=== PATIENT | male | born 1990 | race Two or more races ===

== ENCOUNTER 2016-07-30 10:00 | Emergency (ER) | payer MEDICAID, OTHER ==
[2016-07-30] MEDS ORDERED: Ibuprofen 600 MG Tab PO ONE (10:19)
[2016-07-30] MEDS ORDERED: Acetaminophen/HYDROcodone 325-5 MG Tab PO ONE ×2 (11:00→18:42)
--- NOTE | 2016-07-30 11:06 | EDM.PDOC ---
ED HPI Trauma - General Chief Complaint: Lower Extremity Injury/Pain Stated Complaint: FOOT ANKLE PAIN Time Seen by Provider: 07/30/16 10:10 Source: Reports: Patient, Family History Limitations: Reports: No limitations - History of Present Illness INITIAL COMMENTS - FREE TEXT/NARRATIVE: 26 years old w norma came to the ed 12 hours after her jumped off the second floor after he locked him self in the house. Pt complained of medial ankle pain at his left foot. Pt denied other acute medical issues at this time. Symptom Onset Date: 07/29/16 Symptom Onset Time: 22:00 Occurred When: yesterday Occurred Where: home Method of Injury: fall Severity: mild Pain/Injury Location: Reports: lower extremity, left Consciousness: Reports: no loss of consciousness Associated Symptoms: Reports: denies other symptoms Allergies/ADRs: Allergies No Known Allergies Allergy (Verified 07/30/16 10:13) Home Medications: Ambulatory Orders Hydrocodone/Acetaminophen [Vicodin 5-300 mg Tablet] 1 each PO Q4HR PRN #20 tablet 07/30/16 Social & Family History - Family History Family Medical History: Noncontributory - Tobacco Use Smoking Status *Q: Never Smoker - Caffeine Use Caffeine Use: Reports: Soda - Recreational Drug Use Recreational Drug Use: No Review of Systems - Review of Systems Review Of Systems: See Below Constitutional: Reports: no symptoms Eyes: Reports: no symptoms Ears: Reports: no symptoms Nose: Reports: no symptoms Mouth/Throat: Reports: no symptoms Respiratory: Reports: No Symptoms Cardiovascular: Reports: no symptoms GI/Abdominal: Reports: No symptoms Genitourinary: Reports: no symptoms Musculoskeletal: Reports: no symptoms Skin: Reports: no symptoms Neurological: Reports: No Symptoms Psychiatric: Reports: no symptoms Trauma Exam - Physical Exam Exam: See Below Exam Limited By: No limitations General Appearance: Reports: alert, WD/WN, mild distress Head: Reports: atraumatic, normocephalic Eyes: bilateral eye: normal inspection Ears: Reports: normal external exam Nose: Reports: normal inspection, normal mucousa Throat/Mouth: Reports: Normal inspection, Normal lips, Normal teeth, Normal gums , Normal oropharynx, Normal voice Neck: Reports: non-tender, full range of motion, normal alignment, normal inspection Respiratory Exam: Reports: no respiratory distress, lungs clear, normal breath sounds Cardiovascular: Reports: normal peripheral pulses, regular rate, rhythm, no edema, no JVD GI/Abdominal: Reports: normal bowel sounds, soft, non tender (Male) Exam: Deferred Rectal (Males) Exam: Deferred Back: Reports: full range of motion, normal inspection, non-tender Extremities: Denies: bony-point tenderness (med. 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 Pt complained of medial ankle pain at his left foot. Pt denied other acute medical issues at this time. PE: Bone tenderness medial malleolus left ankle Imaging: mild displaced medial malleolus fracture left ankle Tx: Walking boot/crutches, Motrin, Vicdine Reexam: Improved, pt was able to ambulate. Plan: D/C with instructions. Last Recorded V/S: Last Vital Signs Temp 36.8 C 07/30/16 10:10 Pulse 93 07/30/16 11:10 Resp 17 07/30/16 11:10 BP 128/65 07/30/16 11:10 Pulse Ox 99 07/30/16 11:10 - Orders/Labs/Meds Orders: Active Orders 24 hr Category Date Time Status Ankle Min 3V Lt [CR] Stat Exams 07/30/16 10:14 Taken Meds: Medications Discontinued Medications Generic Name Dose Route Start Last Admin Trade Name Freq PRN Reason Stop Dose Admin Hydrocodone Bitart/Acetaminophen 1 tab 07/30/16 11:00 07/30/16 11:04 Sterling 325-5 Mg PO 07/30/16 11:01 1 tab ONETIME ONE Administration Ibuprofen 600 mg 07/30/16 10:19 07/30/16 10:34 Motrin PO 07/30/16 10:20 600 mg ONETIME ONE Administration Departure - Departure Time of Disposition: 11:01 Disposition: Home, Self-Care 01 Condition: good Clinical Impression: Fractured medial malleolus Qualifiers: Encounter type: initial encounter Fracture type: closed Fracture alignment: displaced Laterality: left Qualified Code(s): S82.52XA - Displaced fracture of medial malleolus of left tibia, initial encounter for closed fracture Prescriptions: Hydrocodone/Acetaminophen [Vicodin 5-300 mg Tablet] 1 each PO Q4HR PRN #20 tablet PRN Reason: severe pain Instructions: Ankle Fracture Referrals: PCP,None [Primary Care Provider] - Forms: ED Department Discharge Additional Instructions: Rest, Ice and elevation, please follow up with your orthopedic surgeon as soon as possible, use crutches/walking boot, please come back to the ed if your symptoms get worse acutely.Motrin/Vicodin as recommended. - My Orders Last 24 Hours: My Active Orders 07/30/16 10:14 Ankle Min 3V Lt [CR] Stat - Assessment/Plan Last 24 Hours: My Active Orders 07/30/16 10:14 Ankle Min 3V Lt [CR] Stat
[2016-07-30 11:17] VITALS: BP 128/65
--- NOTE | 2016-08-01 10:52 | CR ---
INDICATION: Left foot injury. Jumped off a ledge, pain left ankle. LEFT ANKLE: Three views of the left ankle revealed soft tissue swelling laterally. However, there is a transverse fracture through the medial malleolus with approximately 1 mm offset of the fracture fragments - adequate position and alignment suggested. The ankle mortise was otherwise intact in appearance. IMPRESSION: Medial malleolar fracture with adequate position and alignment. MTDD
== END 2016-07-30 11:13 | disposition home or self-care (01) ==
LOC: FB.ED 10:00
DX: S82.52XA Displaced fracture of medial malleolus of left tibia, initial encounter for closed fracture (principal); W13.3XXA Fall through floor, initial encounter; Y92.009 Unspecified place in unspecified non-institutional (private) residence as the place of occurrence of the external cause
CPT/HCPCS: 73610; 99283; A9270

== ENCOUNTER 2016-12-15 17:26 | Emergency (ER) | payer MEDICAID, OTHER ==
[2016-12-15 17:39] VITALS: BP 120/74
[2016-12-15] MEDS ORDERED: Ondansetron 8 MG Tab.DIS PO ONE (17:59)
[2016-12-15] MEDS ORDERED: Alum Hydroxide/Mag Hydroxide 15 ML, Lidocaine 2% 15 ML PO ONE ×2 (18:01)
--- NOTE | 2016-12-15 18:13 | EDM.PDOC ---
ED HPI GENERAL MEDICAL PROBLEM - General Chief Complaint: Gastrointestinal Problem Stated Complaint: STOMACH ACHE, VOMITTING Time Seen by Provider: 12/15/16 17:26 Source of Information: Reports: Patient, Family History Limitations: Reports: Language Barrier - History of Present Illness INITIAL COMMENTS - FREE TEXT/NARRATIVE: 26 years old male came to the ed with his S/O due sudden onset of epigastric pain since dinner last night. nobody else got sick, same food. Pt denies etoh or drug use. No dizziness, lightheadedness. He is not able to keep any food/fluids down since last night. No trauma. Denies any other acute medical issues at this time. Onset: Unknown/Unsure Onset Date: 12/14/16 Onset Time: 19:00 Duration: Hour(s):, Getting Worse Location: Reports: Abdomen (epigastric) Quality: Reports: Burning, Dull, Pressure Severity: Moderate Improves with: Reports: Rest Worsens with: Reports: Eating Context: Reports: Other (spicy food) Associated Symptoms: Reports: Malaise mid epigastric Pain Score (Numeric/FACES): 5 - Related Data Allergies Allergy/AdvReac Type Severity Reaction Status Date / Time No Known Allergies Allergy Verified 12/15/16 17:33 Home Meds: Home Meds Hydrocodone/Acetaminophen [Vicodin 5-300 mg Tablet] 1 each PO Q4HR PRN #20 tablet 07/30/16 [Rx] Esomeprazole [NexIUM] 20 mg PO DAILY 12/15/16 [History] Famotidine [Pepcid] 20 mg PO BID #20 tablet 12/15/16 [Rx] Ondansetron [Zofran ODT] 4 mg PO Q6H PRN #20 tab.dis 12/15/16 [Rx] Past Medical History - Past Health History Medical/Surgical History: Denies Medical/Surgical History Social & Family History - Family History Family Medical History: Noncontributory - Tobacco Use Smoking Status *Q: Never Smoker - Caffeine Use Caffeine Use: Reports: Soda - Recreational Drug Use Recreational Drug Use: No ED ROS GENERAL - Review of Systems Review Of Systems: See Below Constitutional: Reports: No Symptoms HEENT: Reports: No Symptoms Respiratory: Reports: No Symptoms Cardiovascular: Reports: No Symptoms Endocrine: Reports: No Symptoms GI/Abdominal: Reports: Abdominal Pain (epigastric) : Reports: No Symptoms Musculoskeletal: Reports: No Symptoms Skin: Reports: No Symptoms Neurological: Reports: No Symptoms Psychiatric: Reports: No Symptoms Hematologic/Lymphatic: Reports: No Symptoms Immunologic: Reports: No Symptoms ED EXAM, GI/ABD - Physical Exam Exam: See Below Exam Limited By: No Limitations General Appearance: Alert, WD/WN, Mild Distress Eyes: Bilateral: Normal Appearance Ears: Normal External Exam, Normal Canal Nose: Normal Inspection, Normal Mucosa, No Blood Throat/Mouth: Normal Inspection, Normal Lips, Normal Teeth, Normal Gums, Normal Oropharynx, Normal Voice, No Airway Compromise Head: Atraumatic, Normocephalic, Facial Swelling Neck: Normal Inspection, Supple, Non-Tender, Full Range of Motion Respiratory/Chest: No Respiratory Distress, Lungs Clear, Normal Breath Sounds, No Accessory Muscle Use, Chest Non-Tender Cardiovascular: Normal Peripheral Pulses, Regular Rate, Rhythm, No Edema, No Gallop, No JVD, No Murmur, No Rub, JVD GI/Abdominal Exam: Tender (epigastric ) (Male) Exam: Deferred Rectal (Males) Exam: Deferred Back Exam: Normal Inspection, Full Range of Motion Extremities: Normal Inspection, Normal Range of Motion, Non-Tender, No Pedal Edema, Normal Capillary Refill Neurological: Alert, Oriented, CN II-XII Intact, Normal Cognition, Normal Gait, No Motor/Sensory Deficits Psychiatric: Normal Affect, Normal Mood Skin Exam: Warm, Dry, Intact, Normal Color, No Rash Lymphatic: No Adenopathy Course - Vital Signs Text/Narrative:: 26 years old male came to the ed with his S/O due sudden onset of epigastric pain since dinner last night. nobody else got sick, same food. Pt denies etoh or drug use. No dizziness, lightheadedness. He is not able to keep any food/fluids down since last night. No trauma. Denies any other acute medical issues at this time. PE: Epigastric pain/dehydrated, nauseated. Labs: WBC 13.5 Impression: Gastritis, Dehydration Tx: NS, Protonix, Zofran, GI coctail. Reexam: Improved 100% Plan: D/C with instructions. Last Recorded V/S: Last Vital Signs Temp 37.1 C 12/15/16 17:26 Pulse 119 H 12/15/16 17:26 Resp 17 12/15/16 17:26 BP 120/74 12/15/16 17:26 Pulse Ox 100 12/15/16 17:26 - Orders/Labs/Meds Labs: Laboratory Tests 12/15/16 12/15/16 Range/Units 18:25 18:25 WBC 13.4 H (4.5-12.0) X10-3/uL RBC 5.46 (4.30-5.75) x10(6)uL Hgb 15.9 H (11.5-15.5) g/dL Hct 46.7 (30.0-51.3) % MCV 85.5 (80-96) fL MCH 29.2 (27.7-33.6) pg MCHC 34.2 (32.2-35.4) g/dL RDW 12.6 (11.5-15.5) % Plt Count 202 (125-369) X10(3)uL MPV 9.7 (7.4-10.4) fL Add Manual Diff Yes Neutrophils % (Manual) 89 H (46-82) % Lymphocytes % (Manual) 4 L (13-37) % Monocytes % (Manual) 7 (4-12) % Sodium 137 (135-145) mmol/L Potassium 3.7 (3.5-5.3) mmol/L Chloride 104 (100-110) mmol/L Carbon Dioxide 24 (23-29) mmol/L BUN 16 (5-20) mg/dL Creatinine 0.9 (0.6-1.3) mg/dL Est Cr Clr Drug Dosing 124.38 mL/min Estimated GFR (MDRD) > 60 (>60) BUN/Creatinine Ratio 17.8 (9-20) Glucose 127 H (80-116) mg/dL Calcium 9.3 (8.6-10.2) mg/dL Total Bilirubin 0.8 (0.1-1.3) mg/dL Direct Bilirubin 0.1 (0.1-0.2) mg/dL AST 24 (5-27) IU/L ALT 28 H (14-26) IU/L Alkaline Phosphatase 61 (56-112) IU/L Total Protein 7.8 (6.0-8.0) g/dL Albumin 4.8 (3.5-5.2) g/dL Amylase 45 (28-100) U/L Meds: Medications Discontinued Medications Generic Name Dose Route Start Last Admin Trade Name Freq PRN Reason Stop Dose Admin Al Hydroxide/Mg Hydroxide 15 0 ml 12/15/16 18:01 12/15/16 18:10 ml/ Lidocaine HCl 15 ml PO 12/15/16 18:02 15 ml ONETIME ONE Administration Sodium Chloride 1,000 mls @ 999 mls/hr 12/15/16 18:17 12/15/16 18:40 Normal Saline IV 12/15/16 19:17 999 mls/hr .BOLUS ONE Administration Ondansetron HCl 8 mg 12/15/16 17:59 12/15/16 18:11 Zofran Odt PO 12/15/16 18:00 8 mg ONETIME ONE Administration Pantoprazole Sodium 40 mg 12/15/16 18:18 12/15/16 18:41 Protonix Iv IVPUSH 12/15/16 18:19 40 mg ONETIME ONE Administration Departure - Departure Time of Disposition: 19:42 Disposition: Home, Self-Care 01 Condition: Good Clinical Impression: Dehydration Gastritis Qualifiers: Gastritis type: superficial Chronicity: acute Gastritis bleeding: without bleeding Qualified Code(s): K29.00 - Acute gastritis without bleeding - Discharge Information Prescriptions: Famotidine [Pepcid] 20 mg PO BID #20 tablet Ondansetron [Zofran ODT] 4 mg PO Q6H PRN #20 tab.dis PRN Reason: Nausea Instructions: Gastritis, Adult, [id number], Dehydration, Adult, [id number] Referrals: PCP,None [Primary Care Provider] - Forms: ED Department Discharge Additional Instructions: Please advance diet as tolerated, please increase water intake, please take the meds as recommended, please follow up, coem back to the ed if your symptoms get worse acutely.
[2016-12-15] MEDS ORDERED: Sodium Chloride 0.9% 1,000 ML IV ONE (18:17)
[2016-12-15] MEDS ORDERED: Pantoprazole 40 MG Vial IVPUSH ONE (18:18)
== END 2016-12-15 20:00 | disposition home or self-care (01) ==
LOC: FB.ED 17:26
DX: K29.00 Acute gastritis without bleeding (principal); E86.0 Dehydration; Z79.899 Other long term (current) drug therapy
CPT/HCPCS: 36415; 80048; 80076; 82150; 85025; 96361; 96374; 99284; A9270; C9113; J7040